=== PATIENT | male | born 1965 | race Caucasian/White ===

== ENCOUNTER → 2016-11-30 | Outpatient (CLI) | payer SELFPAY ==
--- NOTE | 2016-12-04 07:40 | RAD ---
Right shoulder four views INDICATION: Shoulder pain IMPRESSION: Mild osteoarthrosis of the AC joint. No acute fracture or dislocation. No advanced arthrosis of the glenohumeral joint. Otherwise no acute process. Electronically signed by: Milan Watt MD 12/04/2016 7:39 AM CDT
== END ==
LOC: RAD 08:54
PROVIDERS: ATTEND Orthopaedic Surgery
DX: M25.511 Pain in right shoulder (principal); M19.011 Primary osteoarthritis, right shoulder

== ENCOUNTER → 2018-01-14 | Outpatient (CLI) | payer OTHER ==
--- NOTE | 2018-01-14 14:36 | US ---
US THYROID CLINICAL STATEMENT: NODULE. No palpable mass, no prior thyroid surgery, no thyroid treatment. COMPARISON: None FINDINGS: Size right thyroid lobe: 5.4 x 2.1 x 2.0 cm Size left thyroid lobe: 4.4 x 1.8 x 1.8 cm Size isthmus: 0.3 cm Estimated total number of nodules greater than or equal to 1 cm: 1 Nodule 1: Size: 1.0 x 0.6 x 0.5 cm Location: Right Mid Composition: solid or almost completely solid: 2 points Echogenicity: hypoechoic: 2 points Shape: wider than tall: 0 points Margins: smooth: 0 points Echogenic foci: none: 0 points ACR Total Points: 4; ACR TI-RADS risk category: TR4 - moderately suspicious nodule. Nodule 2: Size: 0.7 x 0.6 x 0.4 cm Location: Left Mid Composition: solid or almost completely solid: 2 points Echogenicity: hypoechoic: 2 points Shape: wider than tall: 0 points Margins: smooth: 0 points Echogenic foci: none: 0 points ACR Total Points: 4; ACR TI-RADS risk category: TR4 - moderately suspicious nodule. No distinct solid mass or cyst in the adjacent soft tissues. No large calcifications or parenchymal edema. No abnormal vascularity. IMPRESSION: 1. Nodule 1: ACR TI-RADS 2017 Category TR 4. Recommend: Follow-up ultrasound in 1 year. . [facility] recommendations are based upon ACR TI-RADS 2017 guidelines; please see below.* 2. Nodule 2: ACR TI-RADS 2017 Category TR 4. Recommend: No further follow-up. 3. Soft tissue around the thyroid gland is unremarkable. *ACR TI-RADS 2017 Recommendations: TR1: No FNA or follow up TR2: No FNA or follow up TR3: FNA if >/= 2.5 cm, follow up if 1.5 - 2.4 cm in 1, 3, and 5 years TR4: FNA if >/= 1.5 cm, follow up if 1.0 - 1.4 cm in 1, 2, 3, and 5 years TR5: FNA if >/= 1.0 cm, follow up if 0.5 - 0.9 cm every year for 5 years ACR TI-RADS recommends that no more than two nodules with the highest ACR TI-RADS total point should be biopsied and no more than four nodules should be followed. Electronically signed by: Malcolm Eller MD 01/14/2018 2:34 PM [employer]
== END ==
LOC: US 09:46
PROVIDERS: ATTEND Family Medicine
DX: E04.1 Nontoxic single thyroid nodule (principal)